=== PATIENT | female | born 1975 | race Hispanic/Latino ===

== ENCOUNTER 2022-05-11 13:00 | Inpatient (IN) | payer SELFPAY ==
[~2022-05-11] VITALS: Ht 157.5 cm; Wt 117.2 kg
[2022-05-12 15:36] VITALS: BP 134/68
[2022-05-12 15:54] LABS: BASOPHILS % (AUTO) 0.5 % (0.0-5.0); EOSINOPHILS % (AUTO) 2.9 % (0.0-8.0); HEMATOCRIT 42.7 % (36-48); LYMPHOCYTES % (AUTO) 38.4 % (21.0-51.0); MEAN CORPUSCULAR HEMOGLOBIN 29.1 pg (27.0-33.0); MEAN CORPUSCULAR HGB CONC 33.5 g/dL (32.0-36.0); MEAN CORPUSCULAR VOLUME 86.8 fL (79-99); MONOCYTES % (AUTO) 4.3 % (3.0-13.0); NEUTROPHILS % (AUTO) 53.7 % (40.0-77.0); PLATELET COUNT (AUTO) 243 K/uL (130-400); RED BLOOD CELL COUNT(AUTO) 4.92 MIL/uL (4.00-5.50); RED CELL DISTRIBUTION WIDTH 12.3 % (11.0-15.5); WHITE BLOOD COUNT (AUTO) 5.6 K/uL (4.8-10.8)
[2022-05-12] MEDS ORDERED: OLME20TA73 PO (16:06)
[2022-05-12] MEDS ORDERED: HYDR12.54 PO (16:06)
[2022-05-12 16:18] LABS: ALBUMIN 4.1 g/dL (3.5-5.0); CREATININE 0.7 mg/dL (0.5-1.5); POTASSIUM 3.9 mmol/L (3.5-5.1)
[2022-05-13] VITALS (25 sets, daily range): BP systolic 105–159; BP diastolic 60–90
[2022-05-13] MEDS ORDERED: BUPIVACAINE/PF 0.25% 30ML VIAL IJ ONE (05:38)
[2022-05-13] MEDS ORDERED: METRONIDAZOLE 500MG/100ML BAG 100 ML ONE (06:40)
[2022-05-13] MEDS ORDERED: LACTATED RINGERS 1000ML 1,000 ML IV ONE (06:40)
[2022-05-13] MEDS ORDERED: CEFAZOLIN SODIUM 1 GM VIAL ONE (06:40)
[2022-05-13] MEDS ORDERED: METRONIDAZOLE 500MG/100ML BAG 100 ML IVPB SCH (07:00)
[2022-05-13] MEDS: CEFAZOLIN SODIUM 1 GM VIAL IVP SCH ×2 (07:00→10:03)
[2022-05-13] MEDS ORDERED: PHARMACY COMMUNICATION MISC SCH (07:30)
[2022-05-13] MEDS ORDERED: SCOPOLAMINE HYDROBROMIDE 1 EACH ADH..PATCH TD ONE ×2 (07:45→08:00)
[2022-05-13] MEDS ORDERED: LIDOCAINE PF 100MG/5ML (2%) SYRINGE 5ML ONE (07:45)
[2022-05-13] MEDS ORDERED: SUCCINYLCHOLINE CHLORIDE 20 MG/ML 10 ML VIAL ONE ×2 (07:45→07:48)
[2022-05-13] MEDS ORDERED: MIDAZOLAM HCL 1 MG/ML 2ML VIAL ONE (07:46)
[2022-05-13] MEDS ORDERED: NEOSTIGMINE 5MG/5ML SYR IV ONE ×2 (07:46→11:34)
[2022-05-13] MEDS ORDERED: CITRIC ACID/SODIUM CITRATE 30 ML UDCUP ONE (07:46)
[2022-05-13] MEDS ORDERED: DEXAMETHASONE SOD PHOSPHATE 10MG/ML 1ML VIAL ONE (07:46)
[2022-05-13] MEDS ORDERED: GLYCOPYRROLATE 1 MG/5 ML SYRINGE ONE ×2 (07:46→10:44)
[2022-05-13] MEDS ORDERED: PROPOFOL 10 MG/ML 20ML VIAL IV ONE (07:46)
[2022-05-13] MEDS ORDERED: ONDANSETRON 4MG INJ ONE (07:47)
[2022-05-13] MEDS ORDERED: ROCURONIUM 10MG/1ML SYR 10 MG/ML ML ONE ×2 (07:47→10:24)
[2022-05-13] MEDS ORDERED: FENTANYL CITRATE PF 50 MCG/1 ML 2ML VIAL ONE ×2 (07:47→12:21)
[2022-05-13] MEDS ORDERED: LIDOCAINE HCL-MPF 1% 5ML AMP IJ ONE (07:51)
[2022-05-13] MEDS ORDERED: CITRIC ACID/SODIUM CITRATE 30 ML UDCUP PO ONE (08:00)
[2022-05-13] MEDS ORDERED: NALOXONE HCL 0.4 MG/1 ML ML IVP PRN (08:00)
[2022-05-13] MEDS ORDERED: 0.9%NACL 1000ML 1,000 ML IV SCH (08:00)
[2022-05-13] MEDS ORDERED: METOCLOPRAMIDE 10 MG/2 ML VIAL IVP PRN (08:00)
[2022-05-13] MEDS ORDERED: FAMOTIDINE 20MG VIAL IV ONE (08:00)
[2022-05-13] MEDS ORDERED: RACEPINEPHRINE HCL 2.25% 0.5 ML NEB SOLN NEB PRN (08:00)
[2022-05-13] MEDS ORDERED: LACTATED RINGERS 1000ML 1,000 ML IV SCH (08:00)
[2022-05-13] MEDS ORDERED: PROMETHAZINE HCL 25 MG/ML 1ML AMPULE IM PRN (08:00)
[2022-05-13] MEDS ORDERED: ONDANSETRON 4MG INJ IVP PRN ×2 (08:00→12:00)
[2022-05-13] MEDS ORDERED: IPRATROPIUM/ALBUTEROL SULFATE 3 ML SOLUTION IH PRN ×2 (08:00)
[2022-05-13] MEDS ORDERED: MEPERIDINE-PF 25 MG/ML SYG ONE ×2 (11:34→12:29)
[2022-05-13] MEDS: ENOXAPARIN SODIUM 30 MG/0.3 ML SQ SCH ×2 (12:00→22:45)
[2022-05-13] MEDS ORDERED: HYDROCODONE/ACETAMINOPHEN 7.5/325 MG 15 ML UDCUP PO PRN (12:00)
[2022-05-13] MEDS ORDERED: MORPHINE 4 MG SYG IVP PRN ×2 (12:00→19:00)
[2022-05-13] MEDS ORDERED: PROCHLORPERAZINE 10MG/2ML INJ IV PRN (12:00)
[2022-05-13] MEDS: 1/2NS+20MEQ KCL/1000ML 1,000 ML IV SCH ×4 (12:00→23:53)
[2022-05-13] MEDS: KETOROLAC 30MG VIAL (30MG/ML) IV PRN (17:24)
[2022-05-14] MEDS: KETOROLAC 30MG VIAL (30MG/ML) IV PRN ×2 (03:24→13:02)
[2022-05-14 03:47] VITALS: BP 126/65
[2022-05-14 07:30] VITALS: BP 112/64
[2022-05-14] MEDS: 1/2NS+20MEQ KCL/1000ML 1,000 ML IV SCH ×2 (08:00→14:40)
[2022-05-14] MEDS ORDERED: HYDROCHLOROTHIAZIDE 25 MG TABLET PO SCH (09:00)
[2022-05-14 11:30] VITALS: BP 119/69
[2022-05-14] MEDS: ENOXAPARIN SODIUM 30 MG/0.3 ML SQ SCH (12:39)
[2022-05-14] MEDS ORDERED: SIMETHICONE 80 MG TAB.CHEW ONE (14:43)
[2022-05-14] MEDS ORDERED: SIMETHICONE 80 MG TAB.CHEW PO SCH ×2 (14:59→15:01)
[2022-05-14 16:00] VITALS: BP 115/59
[2022-05-14] MEDS ORDERED: SIMETHICONE 40 MG/0.6 ML ML PO SCH (17:00)
== END 2022-05-14 17:20 | disposition home or self-care (01) | DRG 621 ==
LOC: DAHIP 05-13 06:02 → EDSTATUS 05-13 12:07 → 4BH 05-13 13:25
PROVIDERS: ADMIT Surgery; ATTEND Surgery
PROC: 0DB64Z3 Excision of Stomach, Percutaneous Endoscopic Approach, Vertical (ICD-10-PCS; principal; 2022-05-13 09:53)
PROC: 0DJ08ZZ Inspection of Upper Intestinal Tract, Via Natural or Artificial Opening Endoscopic (ICD-10-PCS; 2022-05-13 09:53)
DX: E66.01 Morbid (severe) obesity due to excess calories (principal); Z68.42 Body mass index [BMI] 45.0-49.9, adult; Z20.822 Contact with and (suspected) exposure to COVID-19
CPT/HCPCS: 36415; 43235; 80053; 84703; 85025; 86850; 86900; 86901; 87426; 93005; G0378; J0330; J0690; J1100; J1650; J1885; J2001; J2175; J2250; J2270; J2405; J2704; J2710; J3010; J3480; J3490; J7030; J7120